=== PATIENT | female | born 1970 | race Caucasian/White ===

== ENCOUNTER → 2018-07-10 | Outpatient (CLI) | payer BC ==
--- NOTE | 2018-07-10 16:29 | RAD ---
DATE: 07/10/2018 EXAM: MAMMO SARAI HERSON STACKAT, BREAST BILATERAL HISTORY: Right breast lump COMPARISON: None available This study was interpreted with the benefit of Computerized Aided Detection (CAD). Breast Density: HETERO The breast parenchyma is heterogenously dense, which could reduce sensitivity of mammography. Breast parenchyma level C. FINDINGS: 2-D and 3-D tomosynthesis imaging was performed in CC and MLO projections. There is a 5 cm asymmetric opacity at the 12:00 location in the right breast which corresponds to the area of palpable concern. Its margins are ill-defined. There are several nonspecific microcalcifications in this region. No mass or suspicious microcalcifications are evident on the left. Right breast ultrasound, 07/10/2018: A targeted ultrasound exam of the upper breast was performed in the area of palpable concern and pain from 11:00 to 1:00. Centered at the 12:00 lobe patient there is an elongated band of streaky heterogeneous fibroglandular tissue surrounded by fat. There are numerous small cysts within this process. It is difficult to measure but extends over a distance of approximately 4-5 cm. While the process may represent fibrocystic disease, in view of the suspicious mammographic findings one must consider the possibility of infiltrating breast malignancy. Ultrasound-guided biopsy is suggested for further evaluation. IMPRESSION: Suspicious findings at the 12:00 location in the right breast. Ultrasound-guided biopsy is suggested for further evaluation. Note: The recommendation for biopsy was given to the patient at the time of the exam by the genetic technologist. She will follow-up with the ordering physician. BI-RADS CATEGORY: 4 SUSPICIOUS ABNORMALITY- BIOPSY SHOULD BE CONSIDERED RECOMMENDED FOLLOW-UP: BIO BIOPSY RECOMMENDED PQRS compliance statement: Patient information was entered into a reminder system with a target due date for the next mammogram. Mammography is a sensitive method for finding small breast cancers, but it does not detect them all and is not a substitute for careful clinical examination. A negative mammogram does not negate a clinically suspicious finding and should not result in delay in biopsying a clinically suspicious abnormality. "Our facility is accredited by the [employer] Mammography Program."
== END | disposition home or self-care (01) ==
LOC: MAMMO 14:05
PROVIDERS: ATTEND Family Medicine
DX: N63.10 Unspecified lump in the right breast, unspecified quadrant (principal)
CPT/HCPCS: 76641; 77066; G0279; 77062